=== PATIENT | male | born 1940 | race Caucasian/White ===

== ENCOUNTER 2017-08-04 16:47 | Observation (INO) ==
[2017-08-04] MEDS ORDERED: DIPH/TET/ACEL PERT BOOSTER VACCINE 0.5 ML VIAL IM ONE ×2 (17:39→18:02)
[2017-08-04] MEDS ORDERED: ceFAZolin 1,000 MG VIAL ONE ×2 (18:02→20:18)
[2017-08-04] MEDS ORDERED: BACITRACIN OINT 0.9 GM PACK TOP ONE (18:38)
[2017-08-04 18:56] LABS: Basophils # 0.1 10*3/uL (0.0-0.2); Basophils % 0.5 % (0.0-0.8); Eosinophils % 0.1 % (0.00-10.9); Hemoglobin 13.4 GM/DL (14.0-18.0); Immature Granulocytes % 0.7 %; Immature Granulocytes Absolute 0.07 #; Lymphocytes # 1.6 10*3/uL (1.4-4.0); Lymphocytes % 15.4 % (21.2-54.2); Mean Corpuscular HGB Conc 31.9 GM/DL (32-36); Mean Corpuscular Hemoglobin 28 PG (27-34); Mean Corpuscular Volume 88.2 FL (87-102); Mean Platelet Volume 11.6 FL (9.6-12.0); Monocytes # 0.7 10*3/uL (0.11-0.8); Monocytes % 6.2 % (1.7-12.7); Neutrophils % 77.1 % (38.7-73.9); Platelet Count 164 T/CUMM (130-400); Red Blood Count 4.76 MC/CUMM (3.8-5.5); Red Cell Distribution Width 15.9 % (9.3-17.3); White Blood Count 10.4 T/CUMM (4-12)
[2017-08-04] MEDS ORDERED: KETOROLAC 15 MG/1 ML VIAL IV PRN (19:01)
[2017-08-04] MEDS ORDERED: ACETAMINOPHEN 325 MG TABLET PO PRN (19:01)
[2017-08-04] MEDS ORDERED: MORPHINE 2 MG/1 ML SYRINGE IV PRN ×2 (19:01)
[2017-08-04] MEDS ORDERED: MAGNESIUM HYDROXIDE SUSP 30 ML UDCUP PO PRN (19:01)
[2017-08-04] MEDS ORDERED: ROPIVACAINE 0.5% 30 ML VIAL ONE (19:03)
[2017-08-04 19:05] LABS: PT Patient Result 10.7 SECS
[2017-08-04] MEDS ORDERED: ceFAZolin 1,000 MG in SYRINGE 1 EACH IV ONE (19:08)
[2017-08-04] MEDS ORDERED: LIDOCAINE 2%/EPI 20 ML VIAL ONE (19:09)
[2017-08-04] MEDS ORDERED: LIDOCAINE MPF 2% /EPI 20 ML VIAL ONE (19:09)
[2017-08-04 19:27] LABS: Albumin 3.8 G/DL (3.4-5.0); Bilirubin,Total 0.5 MG/DL (0.2-1.0); Calcium 9.7 MG/DL (8.5-10.1); Osmolality,Calculated 283.4 MOS/KG (273-304); Total Protein 6.9 G/DL (6.4-8.3)
[2017-08-05] MEDS: LACTATED RINGERS 1,000 ML IV SCH ×2 (00:40)
[2017-08-05] MEDS: ceFAZolin 2,000 MG in SYRINGE 1 EACH IV SCH ×2 (03:59→11:26)
[2017-08-05 07:21] LABS: Basophils % 0.2 % (0.0-0.8); Eosinophils # 0.1 10*3/uL (0.0-0.87); Eosinophils % 1.9 % (0.00-10.9); Hemoglobin 10.8 GM/DL (14.0-18.0); Immature Granulocytes % 0.2 %; Immature Granulocytes Absolute 0.01 #; Lymphocytes # 1.5 10*3/uL (1.4-4.0); Lymphocytes % 27.2 % (21.2-54.2); Mean Corpuscular HGB Conc 31.8 GM/DL (32-36); Mean Corpuscular Hemoglobin 28 PG (27-34); Mean Corpuscular Volume 89.5 FL (87-102); Mean Platelet Volume 12.1 FL (9.6-12.0); Monocytes # 0.6 10*3/uL (0.11-0.8); Monocytes % 10.6 % (1.7-12.7); Neutrophils # 3.2 10*3/uL (1.4-7.4); Neutrophils % 59.9 % (38.7-73.9); Platelet Count 140 T/CUMM (130-400); Red Cell Distribution Width 15.9 % (9.3-17.3); White Blood Count 5.4 T/CUMM (4-12)
[2017-08-05 08:50] LABS: Calcium 8.4 MG/DL (8.5-10.1); Osmolality,Calculated 281.4 MOS/KG (273-304); Potassium 3.8 MMOL/L (3.5-5.1)
[2017-08-05] MEDS ORDERED: amLODIPine 5 MG TABLET PO SCH (09:00)
[2017-08-05] MEDS ORDERED: PANTOPRAZOLE 40 MG TABLET PO SCH (09:00)
[2017-08-05] MEDS ORDERED: LISINOPRIL 20 MG TABLET PO SCH (09:00)
[2017-08-05] MEDS ORDERED: hydroCHLOROthiazide 12.5 MG CAPSULE PO SCH (09:00)
[2017-08-05] MEDS ORDERED: CHOLECALCIFEROL 5,000 UNIT TABLET PO SCH (09:00)
[2017-08-05] MEDS ORDERED: NIACIN 500 MG TABLET PO SCH (09:00)
[2017-08-05] MEDS ORDERED: ASPIRIN EC 81 MG TABLET PO SCH (09:00)
[2017-08-05 11:50] VITALS: BP 137/76
[2017-08-05] MEDS ORDERED: APIXABAN 5 MG TABLET PO SCH (21:00)
== END 2017-08-05 14:50 | disposition home or self-care (01) ==
LOC: N.EDINP 16:47 → N.ED 16:47 → N.EDINP 19:00 → N.3E 21:33
PROVIDERS: ADMIT Orthopaedic Surgery; ATTEND Orthopaedic Surgery

== ENCOUNTER 2022-05-25 05:26 | Inpatient (IN) ==
[2022-05-18 11:12] LABS: Basophils % 0.6 % (0.0-0.8); Eosinophils # 0.1 10*3/uL (0.0-0.87); Eosinophils % 1.5 % (0.00-10.9); Hematocrit 42.8 VOL% (42.0-52.0); Immature Granulocytes % 0.2 %; Immature Granulocytes Absolute 0.01 #; Lymphocytes # 0.8 10*3/uL (1.4-4.0); Lymphocytes % 17.6 % (21.2-54.2); Mean Corpuscular HGB Conc 32.7 GM/DL (32-36); Mean Corpuscular Volume 100.2 FL (87-102); Mean Platelet Volume 11.2 FL (9.6-12.0); Monocytes # 0.4 10*3/uL (0.11-0.8); Monocytes % 8.4 % (1.7-12.7); Neutrophils % 71.7 % (38.7-73.9); Platelet Count 134 T/CUMM (130-400); Red Blood Count 4.27 MC/CUMM (3.8-5.5); Red Cell Distribution Width 13.5 % (9.3-17.3); White Blood Count 4.8 T/CUMM (4-12)
[2022-05-18 11:21] LABS: Bilirubin,Urine Negative (Negative); Blood, Urine Negative (Negative); Glucose,Urine (UA) Negative (Negative); Ketones,Urine 5 mg/dL (Negative); Mucus,Urine Occasional /LPF (Occasional); Nitrite,Urine Negative (Negative); Protein,Urine Negative (Negative); Squamous Epithelial Cell,Urine Occasional /HPF (0-10); Urine Appearance CLEAR (Clear); Urine Color Amber (Yellow); Urine Specific Gravity 1.023 (1.001-1.035)
[2022-05-18 11:26] LABS: INR 1.1; PT Patient Result 11.6 SECS (10.1-12.1); Partial Thromboplastin Time 25.2 SECS (23.7-32.9)
[2022-05-18 11:34] LABS: Albumin 3.7 G/DL (3.4-5.0); Bilirubin,Total 0.8 MG/DL (0.20-1.00); Calcium 9.5 MG/DL (8.5-10.1); Potassium 3.8 MMOL/L (3.5-5.1); Total Protein 6.6 G/DL (6.4-8.2)
[2022-05-18 12:39] LABS: Anisocytosis 1+; Burr Cells Few; Platelet Estimate Adequate
[2022-05-18 12:42] LABS: Macrocytosis 1+
[2022-05-25] MEDS ORDERED: LACTATED RINGERS 1,000 ML IV SCH (05:30)
[2022-05-25] MEDS ORDERED: VANCOMYCIN INJ 1,000 MG in SODIUM CHLORIDE 0.9% 250 ML IV ONE (06:00)
[2022-05-25] MEDS ORDERED: ceFAZolin 2,000 MG/50 ML DUPLEX IV ONE (06:00)
[2022-05-25] MEDS ORDERED: ACETAMINOPHEN 500 MG TABLET PO STA (06:57)
[2022-05-25] MEDS ORDERED: FAMOTIDINE 20 MG TABLET PO STA (06:57)
[2022-05-25] MEDS ORDERED: LIDOCAINE 1% 5 ML VIAL ONE (09:31)
[2022-05-25] MEDS ORDERED: BUPIVACAINE MPF 0.5% 30 ML VIAL ONE (09:31)
[2022-05-25] MEDS ORDERED: DEXAMETHASONE 4 MG/1 ML VIAL ONE (09:31)
[2022-05-25] MEDS ORDERED: PHENYLEPHRINE DRIP 20 MG/250 ML PREMIX IV ONE (09:31)
[2022-05-25] MEDS ORDERED: TRANEXAMIC ACID 1,000 MG/10 ML VIAL ONE (09:38)
[2022-05-25] MEDS ORDERED: fentaNYL 100 MCG/2 ML VIAL ONE (09:38)
[2022-05-25] MEDS ORDERED: ONDANSETRON 4 MG/2 ML VIAL ONE (09:38)
[2022-05-25] MEDS ORDERED: MIDAZOLAM 2 MG/2 ML VIAL ONE (09:38)
[2022-05-25] MEDS ORDERED: LIDOCAINE 2% 5 ML VIAL ONE (09:38)
[2022-05-25] MEDS ORDERED: propofoL 200 MG/20 ML VIAL IV ONE (09:38)
[2022-05-25] MEDS ORDERED: buprenorphine HCL 0.3 MG/ML VIAL ONE (09:42)
[2022-05-25] MEDS ORDERED: MAGNESIUM HYDROXIDE SUSP 30 ML UDCUP PO PRN (10:21)
[2022-05-25] MEDS ORDERED: ZALEPLON 5 MG CAPSULE PO PRN (10:21)
[2022-05-25] MEDS ORDERED: MORPHINE 2 MG/1 ML SYRINGE IV PRN ×2 (10:21)
[2022-05-25] MEDS ORDERED: ONDANSETRON 4 MG/2 ML VIAL IV PRN (10:21)
[2022-05-25] MEDS ORDERED: diphenhydrAMINE CAP 25 MG CAPSULE PO PRN (10:21)
[2022-05-25] MEDS ORDERED: ePHEDrine 50 MG/ML VIAL ONE (10:53)
[2022-05-25] MEDS ORDERED: LACTATED RINGERS 1,000 ML IV ONE (11:34)
[2022-05-25 12:01] LABS: Bilirubin,Urine Negative (Negative); Blood, Urine Small mg/dL (Negative); Glucose,Urine (UA) Negative (Negative); Ketones,Urine Negative (Negative); Mucus,Urine Moderate /LPF (Occasional); Nitrite,Urine Negative (Negative); Protein,Urine Negative (Negative); RBC,Urine 4 /HPF (0-4); Squamous Epithelial Cell,Urine Few /HPF (0-10); Urine Appearance Slightly Hazy (Clear); Urine Color Yellow (Yellow); Urine Specific Gravity 1.034 (1.001-1.035)
[2022-05-25] MEDS: LACTATED RINGERS 1,000 ML IV SCH (14:46)
[2022-05-25] MEDS: KETOROLAC 15 MG/1 ML VIAL IV SCH ×3 (16:29→21:35)
[2022-05-25] MEDS: ceFAZolin 2,000 MG/50 ML DUPLEX IV SCH (17:40)
[2022-05-25] MEDS: APIXABAN 2.5 MG TABLET PO SCH (21:32)
[2022-05-25] MEDS: DOCUSATE SODIUM 100 MG CAPSULE PO SCH (21:32)
[2022-05-26] MEDS: ceFAZolin 2,000 MG/50 ML DUPLEX IV SCH (02:57)
[2022-05-26] MEDS: LACTATED RINGERS 1,000 ML IV SCH (02:57)
[2022-05-26 05:33] LABS: Basophils % 0.4 % (0.0-0.8); Eosinophils % 0.7 % (0.00-10.9); Hematocrit 35.9 VOL% (42.0-52.0); Hemoglobin 11.3 GM/DL (14.0-18.0); Immature Granulocytes % 0.2 %; Immature Granulocytes Absolute 0.01 #; Lymphocytes # 0.8 10*3/uL (1.4-4.0); Lymphocytes % 13.7 % (21.2-54.2); Mean Corpuscular HGB Conc 31.5 GM/DL (32-36); Mean Corpuscular Volume 105.3 FL (87-102); Mean Platelet Volume 11.9 FL (9.6-12.0); Monocytes # 0.8 10*3/uL (0.11-0.8); Monocytes % 13.9 % (1.7-12.7); Neutrophils % 71.1 % (38.7-73.9); Platelet Count 66 T/CUMM (130-400); Red Blood Count 3.41 MC/CUMM (3.8-5.5); Red Cell Distribution Width 13.3 % (9.3-17.3); White Blood Count 5.5 T/CUMM (4-12)
[2022-05-26 05:54] LABS: Calcium 8.7 MG/DL (8.5-10.1); Osmolality,Calculated 290.1 MOS/KG (273-304); Potassium 4.5 MMOL/L (3.5-5.1)
[2022-05-26 07:38] VITALS: BP 126/67
[2022-05-26] MEDS: DOCUSATE SODIUM 100 MG CAPSULE PO SCH (08:46)
[2022-05-26] MEDS: APIXABAN 2.5 MG TABLET PO SCH (08:47)
[2022-05-26] MEDS ORDERED: NIACIN 500 MG TABLET PO SCH (09:00)
[2022-05-26] MEDS ORDERED: ASPIRIN EC 81 MG TABLET PO SCH (09:00)
[2022-05-26] MEDS ORDERED: ATORVASTATIN 20 MG TABLET PO SCH (09:00)
[2022-05-26] MEDS ORDERED: hydroCHLOROthiazide 12.5 MG CAPSULE PO SCH (09:00)
[2022-05-26] MEDS ORDERED: lisinopriL 20 MG TABLET PO SCH (09:00)
== END 2022-05-26 13:52 | disposition home health service (06) | DRG 470 ==
LOC: N.SDSINP 05:26 → N.3E 17:04
PROVIDERS: ADMIT Orthopaedic Surgery; ATTEND Orthopaedic Surgery